=== PATIENT | male | born 1975 | race Caucasian/White ===

== ENCOUNTER 2022-02-14 09:16 | Emergency (ER) | payer SELFPAY ==
[2022-02-14 11:06] VITALS: BP 100/65; PULSE 73; RESP 18; TEMP 36.6; O2SAT 94; BMI 17.8
--- NOTE | 2022-02-14 11:10 | XR_ITS ---
WS: [id number] PORTABLE CHEST HISTORY: Covid COMPARISON: None available. Very minimal curvilinear opacification at the LEFT lung base. RIGHT lung is clear. No pleural effusio n or pneumothorax. Cardiac size: Normal. Mediastinum/Aorta: Normal mediastinum. No osseous abnormality seen. XR/XR chest 1V portable [id number] IMPRESSION: Subsegmental opacification LEFT lower lobe.
--- NOTE | 2022-02-14 12:09 | ED_ITS ---
HPI - General Adult General: Chief complaint: COVID symptoms Stated complaint: Covid + Time Seen by Provider: 02/14/22 12:08 History of Present Illness: Patient is a 46-year-old male with no sniffing past medical history presenting to the emergency with body aches, generalized weakness, lightheadedness, near syncope cough for last 3 days. Patient has a positive COVID test at home. Patient tells me that yesterday he was feeling very tired and passed out onto his couch. Patient denies any diarrhea, decreased p.o. intake nausea or vomiting. Patient has no associated chest pain, productive sputum, fever or chills, or abdominal pain. Onset:3 days ago Duration:ongoing Location:home Severity:moderate Associated symptoms: Reports dyspnea; Deny chest pain, nausea, rash, palpitations or vomiting Review of Systems Const: Reports: body aches, fatigue and other (+generalized weakness); Denies: fever(s) or chills Eyes: Denies: change in vision ENMT: Reports: nasal congestion and other; Denies: mouth pain Card: Denies: chest pain or palpitations Resp: Reports: dyspnea and non-productive cough GI: Denies: abdominal pain, nausea, vomiting or diarrhea : Denies: dysuria Musc: Denies: extremity pain Skin/Breast: Denies: rash or new lesions Neuro: Denies: weakness in extremities Psych: Reports: other (Normal mood) Joe/Lymph: Denies: easy bruising PFS ED PFSH: Medical History No pertinent past medical history Social History Smoking and tobacco status: never smoked Alcohol intake: never Substance/Drug Use: never Physical Exam Const: COMMON NORMALS: alert HENMT: COMMON NORMALS: atraumatic HEAD & SCALP: atraumatic MOUTH: moist mucous membranes abnormal Eye: COMMON NORMALS: EOMs intact bilaterally and conjunctivae normal CONJUNCTIVA: Yes conjunctivae normal Neck/C-Spine: COMMON NORMALS: full ROM and supple Resp: COMMON NORMALS: normal respiratory effort and clear to auscultation bilaterally AUSCULTATION: clear to auscultation bilaterally Cardio: COMMON NORMALS: regular rate RATE: regular rate GI: COMMON NORMALS: Soft to palpation and non-tender PALPATION: Yes Soft to palpation OTHER: No focal TTP. NO guarding rebound, guarding, rigidity. No CVA tenderness to percussion. Neg Rizo/Neg McBurney's point tenderness, no suprabupic tenderness to palpation. Extremity: COMMON NORMALS: full ROM Neuro: SENSORIUM/ORIENTATION: Yes alert MOTOR EXAM: No Abnormal motor strength present and Other motor observations present (no focal motor deficits) Psych: COMMON NORMALS: speech normal SPEECH: Yes normal speech MOOD & AFFECT: Yes euthymic mood Course Vital Signs: Vital signs: Vital Signs Temperature 97.8 F 02/14/22 11:06 Pulse Rate 73 02/14/22 11:06 Respiratory Rate 18 02/14/22 11:06 Blood Pressure 100/65 02/14/22 11:06 Pulse Oximetry 94 02/14/22 11:06 Oxygen Delivery Me thod 02/14/22 11:06 MDM - General Adult Medical Decision Making 46-year-old male with no significant past medical history presenting to the emergency room with generalized weakness, body aches, cough, lightheadedness and near syncope for the last 3 days. On exam, patient has dry mucous membrane. Rest of exam is unremarkable. Patient is noted white count 7.0. Sodium 131. X-ray chest showed possible left lower lobe pneumonia. CTA is negative for any signs of PE. Patient was found to have a developing pneumonia versus pneumonitis in the left lung base. Patient continues to be hemodynamically stable with no signs of increased work of breathing or respiratory distress. Patient received IVF has been able to tolerate p.o. in the emergency room. Patient received ceftriaxone and azithromycin for coverage of community-acquired pneumonia. At the present time, given age and risk factors, patient stable for outpatient follow-up and management of COVID pneumonia versus bacterial pneumonia. Rx Z-maría for pneumonia, paxlovid for covid, tylenol PRN fever/pain, maalox PRN dyspepsia, and zofran PRN nausea/vomiting Disposition: Discharge. Patient counseled regarding diagnostic impression, treatment plan. Patient given ED strict return precautions to return for continuation, worsening, or development of new symptoms. Instructed to f/u w/ PCP regarding symptoms today. Patient verbalized understanding. Lab Data : 02/14/22 12:15 02/14/22 12:15 Radiology Impressions Chest X-Ray 02/14/22 11:10 IMPRESSION: Subsegmental opacification LEFT lower lobe. Chest CTA 02/14/22 12:31 IMPRESSION: 1. No pulmonary embolism. 2. Segmental opacification of the LEFT lung base. Developing pneumonia versus pneumonitis. 3. Indeterminate, probably reactive mediastinal lymph nodes. Laboratory Results WBC 7.0 10^3/uL (4.0-10.0) 02/14/22 12:15 RBC 4.81 10^6/uL (4.1-5.3) 02/14/22 12:15 Hgb 15.2 g/dL (11.7-16.6) 02/14/22 12:15 Hct 45.9 % (42.0-52.0) 02/14/22 12:15 MCV 95.4 fl (80-94) H 02/14/22 12:15 MCH 31.6 pg (28.0-34.0) 02/14/22 12:15 MCHC 33.1 g/dL (30.0-36.0) 02/14/22 12:15 RDW 13.5 % (12.1-15.1) 02/14/22 12:15 Plt Count 186 10^3/cmm (130-400) 02/14/22 12:15 MPV 9.4 fL (7.4-10.4) 02/14/22 12:15 Neut % (Auto) 67.4 % 02/14/22 12:15 Lymph % (Auto) 18.8 % 02/14/22 12:15 [place] % (Auto) 12.6 % 02/14/22 12:15 Eos % (Auto) 0.3 % 02/14/22 12:15 Baso % (Auto) 0.6 % 02/14/22 12:15 Neut # (Auto) 4.69 10^3/uL (1.8-7.7) 02/14/22 12:15 Lymph # (Auto) 1.3 10^3/uL (0.8-4.8) 02/14/22 12:15 [place] # (Auto) 0.9 10^3/uL (0.2-0.9) 02/14/22 12:15 Eos # (Auto) 0.0 10^3/uL (0.0-0.8) 02/14/22 12:15 Baso # (Auto) 0.0 10^3/uL (0.0-0.1) 02/14/22 12:15 Nucleated RBC % (auto) 0 % 02/14/22 12:15 Nucleated RBCs # 0.0 /100WBC 02/14/22 12:15 Sodium 131 mmol/L (136-145) L 02/14/22 12:15 Potassium 4.6 mmol/L (3.5-5.1) 02/14/22 12:15 Chloride 97 mmol/L (98-107) L 02/14/22 12:15 Carbon Dioxide 24 mmol/L (22-29) 02/14/22 12:15 Anion Gap 14.6 (5-19) 02/14/22 12:15 BUN 10 mg/dL (6-20) 02/14/22 12:15 Creatinine 0.5 mg/dL (0.7-1.2) L 02/14/22 12:15 GFR Calculation 179.8 mL/min (90-130) H 02/14/22 12:15 Glucose 103 mg/dL (65-115) 02/14/22 12:15 Calculated Osmolality 271 mOsm/kg (285-295) L 02/14/22 12:15 Calcium 9.2 mg/dL (8.5-10.5) 02/14/22 12:15 Total Bilirubin 0.4 mg/dL (0.15-1.2) 02/14/22 12:15 AST 34 U/L (0-40) 02/14/22 12:15 ALT 37 U/L (0-41) 02/14/22 12:15 Alkaline Phosphatase 109 U/L (40-130) 02/14/22 12:15 Total Protein 7.2 g/dL (6.6-8.7) 02/14/22 12:15 Albumin 4.0 g/dL (3.5-5.2) 02/14/22 12:15 Globulin 3.2 g/dL (1.3-4.6) 02/14/22 12:15 Lipase 34 U/L (13-60) 02/14/22 12:15 Imaging Data Other Imaging: Radiologist's impression: [address] [address] [address] Scan Report Signed Patient: Arnel Finch Unit #: [id number] : 1975 Age/Sex: 46 / M ADM Date: 02/14/22 Loc: ER Room/Bed: Attending Dr: Ordering Provider/Ordering MD: Cynthia Myers MD Date of Service: 02/14/22 Procedure(s): CT angio chest PE protcl [id number] Accession Number(s): [id number] Report Number: [id number] WS: [id number] CT CHEST ANGIOGRAPHY WITH REFORMATS HISTORY: syncope, dyspnea, covid TECHNIQUE: Contiguous axial images are obtained through the chest during arterial injection of intravenous contrast. Images are reconstructed to evaluate the pulmonary arteries. MIP imaging also reviewed.? [facility] scans at [facility] use at least one of these dose optimization techniques: automated exposure control; mA and/or kV adjustment per patient size (includes targeted exams where dose is matched to clinical indication); or iterative reconstruction. CONTRAST: Omnipaque 350; 95 mL IV. DLP: 320.18 mGy.cm COMPARISON: None available. Excellent opacification of the pulmonary arteries. No filling defects or pulmonary embolism. Pulmonary artery is normal size. Normal size aorta. Mediastinal and hilar indeterminate lymph nodes. The largest lymph node at the RIGHT hilum measures 15 mm. Smaller subcarinal and LEFT hilar lymph nodes. Dependent changes at the lung bases, LEFT greater than RIGHT. Developing pneumonia at the LEFT lung base may be present. No pleural effusion. Mild enlargement of the LEFT heart chambers. No pericardial effusion. No RIGHT heart strain. Small hiatal hernia. Upper abdomen is negative for acute process. Prior cholecystectomy. No adrenal mass. No destructive bone lesions. CT/CT angio chest PE protcl [id number] IMPRESSION: ? 1.? No pulmonary embolism. 2.? Segmental opacification of the LEFT lung base. Developing pneumonia versus pneumonitis. 3.? Indeterminate, probably reactive mediastinal lymph nodes. ? ? ? Dictated By: Cindi Solis DO Signed By: Cindi Solis DO Signed Date/Time: 02/14/22 1312 DD/ [address] [address] XRay Report Signed Patient: Arnel Finch Unit #: [id number] : 1975 Age/Sex: 46 / M ADM Date: 02/14/22 Loc: ER Room/Bed: Attending Dr: Ordering Provider/Ordering MD: Agustín Hendrix DO Date of Service: 02/14/22 Procedure(s): XR chest 1V portable [id number] Accession Number(s): [id number] Report Number: [id number] WS: [id number] PORTABLE CHEST HISTORY: Covid COMPARISON: None available. Very minimal curvilinear opacification at the LEFT lung base. RIGHT lung is clear. No pleural effusion or pneumothorax. Cardiac size: Normal. Mediastinum/Aorta: Normal mediastinum. No osseous abnormality seen. XR/XR chest 1V portable [id number] IMPRESSION: ? Subsegmental opacification LEFT lower lobe. ? ? ? Dictated By: Cindi Solis DO Signed By: Cindi Solis DO Signed Date/Time: 02/14/221133 DD/ 113 Discharge Plan Discharge Patient Disposition: Home Clinical Impression: Pneumonia, COVID, Dehydration Condition: Stable Prescriptions: New Zithromax TRI-MARÍA 500 mg tablet See Rx Instructions .ROUTE .COMPLEX Qty: 3 0RF Rx Instructions: For 250 mg dose pack: take 500 mg today (day 1), then 250 mg for 4 days (days 2-5) acetaminophen 500 mg tablet 500 mg PO Q6H PRN (Reason: pain) 5 Days Qty: 20 0RF ondansetron 4 mg tablet,disintegrating 4 mg PO TID PRN (Reason: nausea and vomiting) 4 Days Qty: 12 0RF Maalox Advanced 1,000-60 mg tablet,chewable 1 tab PO TID PRN (Reason: abdominal pain) 7 Days Qty: 21 0RF Paxlovid (EUA) 300 mg (150 mg x 2)-100 mg tablets,dose pack See Rx Instructions .ROUTE .COMPLEX Qty: 30 0RF Rx Instructions: take TWO 150 mg tablets of nirmatrelvir with ONE 100 mg tablet of ritonavir twice daily for 5 days Discharge Orders: Discharge ED (Routine); Ordered 02/14/22 Ordered By: Cynthia Myers Referrals: Jacquelyn Corona, JUAN CARLOS [Primary Care Provider] - Discharge Diet: Advance as tolerated Discharge Activity: Increase activity as tolerated Patient Instructions: Pneumonia (ED), COVID-19 (Coronavirus Disease 2019) (ED) Activity Restrictions/Additional Instructions: Come back to the emergency room if your symptoms worsen, have any shortness of breath, fever/chills, dehydration, inability tolerate food or drinks, any difficulty breathing, or any new or concerning complaints. Please return the emergency room if your pulse ox reads less than 88%. Coding Level of Care Code ED Frozen Food Department Manager for Chg Fwd Exam Comprehensive
[2022-02-14] MEDS: sodium chloride 0.9% 1,000 ML 999 ML IV (12:21)
[2022-02-14] MEDS: acetaminophen 500 mg Tablet 1000 MG PO (12:22)
[2022-02-14 12:23] LABS: Basophils % 0.6 %; Eosinophils % 0.3 %; Hematocrit 45.9 % (42.0-52.0); Hemoglobin 15.2 g/dL (11.7-16.6); Lymphocytes # 1.3 10^3/uL (0.8-4.8); Lymphocytes % 18.8 %; Mean Corpuscular HGB Conc 33.1 g/dL (30.0-36.0); Mean Corpuscular Hemoglobin 31.6 pg (28.0-34.0); Mean Corpuscular Volume 95.4 fl (80-94); Mean Platelet Volume 9.4 fL (7.4-10.4); Monocytes # 0.9 10^3/uL (0.2-0.9); Monocytes % 12.6 %; Neutrophils # 4.69 10^3/uL (1.8-7.7); Neutrophils % 67.4 %; Nucleated Red Blood Cells % 0 %; Platelet Count 186 10^3/cmm (130-400); Red Blood Count 4.81 10^6/uL (4.1-5.3); Red Cell Distribution Width 13.5 % (12.1-15.1)
[2022-02-14 12:30] VITALS: BP 107/68; PULSE 62; TEMP 36.7; O2SAT 95
--- NOTE | 2022-02-14 12:31 | CT_ITS ---
WS: [id number] CT CHEST ANGIOGRAPHY WITH REFORMATS HISTORY: syncope, dyspnea, covid TECHNIQUE: Contiguous axial images are obtained through the chest during arterial injection of intrav enous contrast. Images are reconstructed to evaluate the pulmonary arteries. MIP imaging also reviewe d. All CT scans at [facility] use at least one of these dose optimization techniques: automat ed exposure control; mA and/or kV adjustment per patient size (includes targeted exams where dose is matched to clinical indication); or iterative reconstruction. CONTRAST: Omnipaque 350; 95 mL IV. DLP: 320.18 mGy.cm COMPARISON: None available. Excellent opacification of the pulmonary arteries. No filling defects or pulmonary embolism. Pulmonar y artery is normal size. Normal size aorta. Mediastinal and hilar indeterminate lymph nodes. The larg est lymph node at the RIGHT hilum measures 15 mm. Smaller subcarinal and LEFT hilar lymph nodes. Depe ndent changes at the lung bases, LEFT greater than RIGHT. Developing pneumonia at the LEFT lung base may be present. No pleural effusion. Mild enlargement of the LEFT heart chambers. No pericardial effusion. No RIGHT heart strain. Small hi atal hernia. Upper abdomen is negative for acute process. Prior cholecystectomy. No adrenal mass. No destructive b one lesions. CT/CT angio chest PE protcl [id number] IMPRESSION: 1. No pulmonary embolism. 2. Segmental opacification of the LEFT lung base. Developing pneumonia versus pneumonitis. 3. Indeterminate, probably reactive mediastinal lymph nodes.
[2022-02-14] MEDS: ondansetron 4 MG Tablet PO (12:34)
[2022-02-14 12:48] LABS: Alanine Aminotransferase 37 U/L (0-41); Alkaline Phosphatase 109 U/L (40-130); Blood Urea Nitrogen 10 mg/dL (6-20); Calcium 9.2 mg/dL (8.5-10.5); Carbon Dioxide 24 mmol/L (22-29); Chloride 97 mmol/L (98-107); Globulin 3.2 g/dL (1.3-4.6); Glomerular Filtration Rate 179.8 mL/min (90-130); Glucose 103 mg/dL (65-115); Lipase 34 U/L (13-60); Osmolality Calculated 271 mOsm/kg (285-295); Sodium 131 mmol/L (136-145); Total Bilirubin 0.4 mg/dL (0.15-1.2); Total Protein 7.2 g/dL (6.6-8.7)
[2022-02-14 12:51] LABS: Anion Gap 14.6 (5-19); Aspartate Amino Transferase 34 U/L (0-40); Potassium 4.6 mmol/L (3.5-5.1)
[2022-02-14] MEDS: iohexol 350 mg/mL 100 mL Btl IV (12:53)
[2022-02-14 13:00] VITALS: BP 107/70; PULSE 59; RESP 16; O2SAT 98
[2022-02-14 13:30] VITALS: O2SAT 95
[2022-02-14] MEDS: cefTRIAXone 1,000 MG in sodium chloride 0.9% (plus) 50 ML 100 MG IV (14:02)
[2022-02-14] MEDS: azithromycin 250 mg Tablet 500 MG PO (14:02)
[2022-02-14 14:14] LABS: Adenovirus Not Detected (NOT DETECT); Chlamydia Pneumoniae Not Detected (NOT DETECT); Coronavirus 229E,HKU1,NL63,OC4 Not Detected (NOT DETECT); Human Metapneumovirus Not Detected (NOT DETECT); Human Rhinovirus/Enterovirus Not Detected (NOT DETECT); Influenza A Not Detected (NOT DETECT); Influenza A H1 Not Detected (NOT DETECT); Influenza A H1-2009 Not Detected (NOT DETECT); Influenza A H3 Not Detected (NOT DETECT); Influenza B Not Detected (NOT DETECT); Mycoplasma Pneumoniae Not Detected (NOT DETECT); Parainfluenza Virus Type 1 Not Detected (NOT DETECT); Parainfluenza Virus Type 2 Not Detected (NOT DETECT); Parainfluenza Virus Type 3 Not Detected (NOT DETECT); Parainfluenza Virus Type 4 Not Detected (NOT DETECT); Respiratory Syncytial Virus A Not Detected (NOT DETECT); Respiratory Syncytial Virus B Not Detected (NOT DETECT); SARS-COV-2 Detected (NOT DETECT)
[2022-02-14 15:09] VITALS: BP 97/69; PULSE 72; TEMP 36.7; O2SAT 100
== END 2022-02-14 15:00 | disposition home or self-care (01) ==
PROVIDERS: Family Medicine; Emergency Provider Emergency Medicine; PCP Nurse Practitioner
DX: U07.1 COVID-19 (principal); J12.82 Pneumonia due to coronavirus disease 2019; E86.0 Dehydration
CPT/HCPCS: 36415; 71045; 71275; 80053; 83690; 85025; 87635; 96365; 99285; J0696; J7030; Q0144; Q0162; Q9967